=== PATIENT | female | born 1990 | race Caucasian/White ===

== ENCOUNTER 2023-06-20 15:29 | Emergency (ER) | payer OTHER, MEDICAID ==
[~2023-06-20] VITALS: Ht 157.5 cm; Wt 163.3 kg
[2023-06-20 15:34] VITALS: BP 136/76; PULSE 88; RESP 20; TEMP 99.1; O2SAT 99
[2023-06-20] MEDS ORDERED: NAPR-54 PO (15:55)
[2023-06-20] MEDS ORDERED: LID5T TP (15:55)
[2023-06-20] MEDS ORDERED: CYCL-711 PO (15:55)
[2023-06-20] MEDS: CYCLOBENZAPRINE 10 MG TAB PO ONE (16:07)
[2023-06-20] MEDS: KETOROLAC 30 MG/ML VIAL IM ONE (16:08)
== END 2023-06-20 16:01 | disposition home or self-care (01) ==
LOC: MED 15:29
DX: M54.50 Low back pain, unspecified (principal); F41.9 Anxiety disorder, unspecified; F32.A Depression, unspecified; Z79.899 Other long term (current) drug therapy; V49.88XA Car occupant (driver) (passenger) injured in other specified transport accidents, initial encounter; Y93.89 Activity, other specified; Y92.89 Other specified places as the place of occurrence of the external cause; Y99.8 Other external cause status
CPT/HCPCS: 96372; 99283; J1885